=== PATIENT | female | born 1990 ===

== ENCOUNTER 2017-04-29 19:42 | Emergency (ER) | payer SELFPAY ==
[2017-04-29 19:53] VITALS: TEMP 98.7; BMI 19.8
[2017-04-29] MEDS ORDERED: Sodium Chloride 0.9% 1,000 ML IV STA (20:08)
--- NOTE | 2017-04-29 20:18 | ED PDOC ---
Arrival/HPI - General Chief Complaint: Abdominal Pain Time Seen by Provider: 04/29/17 19:43 - History of Present Illness Narrative History of Present Illness (Text): 04/29/17 20:18 26yo female present with complaint of constant crampy abdominal pain x 2days. Notes that pain started with her period. She states she has been experiencing this pain with her period x 5months now. Notes that she saw her "[facility] once and was told she had UTI. She was taking OTC ibuprofen without relieve. Also report diarrhea x 3 today. Denies nausea, vomiting, hematuria, dysuria, hematochezia, hematemesis, fever, chills, any other complaint. Past Medical History - Provider Review Nursing Documentation Reviewed: Yes - Cardiac Hx Cardiac Disorders: No - Pulmonary Hx Respiratory Disorders: No - Neurological Hx Neurological Disorder: No - HEENT Hx HEENT Disorder: No - Renal Hx Renal Disorder: No - Endocrine/Metabolic Hx Endocrine Disorders: No - Hematological/Oncological Hx Blood Disorders: No - Integumentary Hx Dermatological Disorder: No - Musculoskeletal/Rheumatological Hx Musculoskeletal Disorders: No - Gastrointestinal Hx Gastrointestinal Disorders: No - Genitourinary/Gynecological Hx Genitourinary Disorders: No - Psychiatric Hx Psychophysiologic Disorder: No Hx Substance Use: No - Anesthesia Hx Anesthesia: No Family/Social History - Physician Review Nursing Documentation Reviewed: Yes Family/Social History: Unknown Family HX Smoking Status: Never Smoked Hx Alcohol Use: Yes Frequency of alcohol use: Socially Hx Substance Use: No Allergies/Home Meds Allergies/Adverse Reactions: Allergies No Known Allergies Allergy (Verified 04/29/17 19:52) Review of Systems - Physician Review All systems were reviewed & negative as marked: Yes - Review of Systems Constitutional: Normal Eyes: Normal ENT: Normal Respiratory: Normal Cardiovascular: Normal Gastrointestinal: Abdominal Pain, Diarrhea. absent: Constipation, Nausea, Vomiting, Hematochezia, Hematemesis Genitourinary Female: Normal Musculoskeletal: Normal Skin: Normal Neurological: Normal Endocrine: Normal Hemo/Lymphatic: Normal Psychiatric: Normal Physical Exam Vital Signs Reviewed: Yes Vital Signs Temp Pulse Resp BP Pulse Ox 04/29/17 22:47 95 H 16 115/87 100 04/29/17 19:53 98.7 F 108 H 20 93/67 L 98 04/29/17 19:52 98.7 F 108 H 20 93/67 L 98 Temperature: Afebrile Blood Pressure: Normal Pulse: Regular Respiratory Rate: Normal Appearance: Positive for: Well-Appearing, Non-Toxic, Comfortable Pain Distress: None Mental Status: Positive for: Alert and Oriented X 3 - Systems Exam Head: Present: Atraumatic, Normocephalic Pupils: Present: PERRL Extroacular Muscles: Present: EOMI Conjunctiva: Present: Normal Mouth: Present: Moist Mucous Membranes Neck: Present: Normal Range of Motion Respiratory/Chest: Present: Clear to Auscultation, Good Air Exchange. No: Respiratory Distress, Accessory Muscle Use Cardiovascular: Present: Regular Rate and Rhythm, Normal S1, S2. No: Murmurs Abdomen: Present: Tenderness (Diffuse), Normal Bowel Sounds, Guarding (Voluntary ), Other (Soft). No: Distention, Peritoneal Signs, Rebound, McBurney's Point Tender, Rovsing's Sign Present Back: No: CVA Tenderness, Midline Tenderness Upper Extremity: Present: Normal Inspection. No: Cyanosis, Edema Lower Extremity: Present: Normal Inspection. No: Edema Neurological: Present: GCS=15, CN II-XII Intact, Speech Normal Skin: Present: Warm, Dry, Normal Color. No: Rashes Psychiatric: Present: Alert, Oriented x 3, Normal Insight, Normal Concentration Medical Decision Making ED Course and Treatment: 04/30/17 00:13 PT presented for stated history. Her pain improved in ED with medication. Her lab was nonspecific. Transvaginal US 04/30/17 00:17 FINDINGS: Uterus/cervix: Unremarkable in echogenicity and size measuring 7.1 x 5.6 x 4.7 cm. Normal endometrial stripe thickness, measuring 4 mm. No myometrial mass. Right ovary: Unremarkable in echogenicity and size measuring 2.7 x 1.9 x 1.8 cm. A dominant follicle is detected measuring 7.5 mm. No mass. Normal blood flow. Left ovary: Unremarkable in size measuring 3.1 x 1.6 x 2.4 cm. a bilobed anechoic focus is identified with a combined diameter of 12 mm. This focus represents either 2 separate simple cysts with intervening ovarian tissue, versus a septated cyst. The septation measures 2 mm in thickness but does demonstrate vascularity. Otherwise normal blood flow is detected within the left ovary. Free fluid: Complex free fluid is identified superior to the uterus and within the left adnexa. IMPRESSION: Complex cyst within the left ovary for which followup is recommended. Complex free fluid within the left hemipelvis, as detailed above. 04/30/17 00:18 FINDINGS: Liver: The liver is increased in echogenicity suggesting fatty infiltration. The liver is unremarkable in size measuring 15 cm in longitudinal dimension. No intrahepatic bile duct dilation. Trace free fluid within the hepatorenal recess. Gallbladder: The gallbladder is only minimally distended, without shadowing stones. No gallbladder wall thickening or pericholecystic fluid. Common bile duct: No stones. No dilation, measuring 3 mm. Pancreas: Visualization of the pancreas is limited by overlying bowel gas. Right kidney: Unremarkable in echogenicity and size measuring 9.6 x 4.6 x 5.5 cm. No hydronephrosis. Left Kidney: Unremarkable in echogenicity and size measuring 9.4 x 5.9 x 5.1 cm. No hydronephrosis. Spleen: Unremarkable in echogenicity and size measuring 8.8 cm in longitudinal dimension. Aorta: Unremarkable. Inferior vena cava: patent. IMPRESSION: Fatty infiltration of the liver. Trace free fluid within the hepatorenal recess, a finding of uncertain clinical significance. Limited evaluation of the pancreas, secondary to overlying bowel gas. Otherwise, unremarkable sonographic evaluation of the abdomen, as detailed above. Result was DW the pt. 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 Advised TRT ED for any new or worsening symptoms. - Lab Interpretations Lab Results: 04/29/17 20:25 04/29/17 20:25 Lab Results 04/29/17 20:25: Sodium 137, Potassium 3.8, Chloride 101, Carbon Dioxide 27, Anion Gap 13, BUN 12, Creatinine 0.8, Est GFR ( Amer) > 60, Est GFR (Non- Af Amer) > 60, Random Glucose 104, Calcium 9.6, Total Bilirubin 1.7 H, AST 26, ALT 46, Alkaline Phosphatase 62, Total Protein 8.4 H, Albumin 4.4, Globulin 4.0 , Albumin/Globulin Ratio 1.1, Lipase 37 04/29/17 20:25: Urine Color Light red, Urine Appearance Cloudy, Urine pH 7.0, Ur Specific Michael 1.015, Urine Protein 30 H, Urine Glucose (UA) Negative, Urine Ketones Negative, Urine Blood Large H, Urine Nitrate Negative, Urine Bilirubin Negative, Urine Urobilinogen 0.2, Ur Leukocyte Esterase Negative, Urine RBC Tntc, Urine WBC 5 - 10, Ur Epithelial Cells 4 - 5 04/29/17 20:25: PT 13.1 H, INR 1.20 H, APTT 28.9 04/29/17 20:25: WBC 8.7, RBC 4.60, Hgb 13.3, Hct 40.5, MCV 88.0, MCH 28.9, MCHC 32.8, RDW 13.6, Plt Count 215, MPV 10.1, Gran % 75.8 H, Lymph % (Auto) 14.5 L, [place] % (Auto) 9.5 H, Eos % (Auto) 0.1 L, Baso % (Auto) 0.1, Gran # 6.62 H, Lymph # 1.3, [place] # 0.8 H, Eos # 0.0, Baso # 0.01 - RAD Interpretation Radiology Orders: 04/29/17 20:08 ABDOMEN COMPLETE [US] Stat 04/29/17 20:10 TRANSVAGINAL [US] Stat - Medication Orders Current Medication Orders: Discontinued Medications Famotidine (Pepcid) 20 mg IVP STAT STA Stop: 04/29/17 20:09 Last Admin: 04/29/17 20:47 Dose: 20 mg IVP Administration Document 04/29/17 20:47 SF (Rec: 04/29/17 20:47 SF [id number] Charges for Administration # of IVP Administrations 1 Sodium Chloride (Sodium Chloride 0.9%) 1,000 mls @ 1,000 mls/hr IV .Q1H STA Stop: 04/29/17 21:07 Last Admin: 04/29/17 20:46 Dose: 1,000 mls/hr eMAR Start Stop Document 04/29/17 20:46 SF (Rec: 04/29/17 20:46 SF [email or web address]) Intravenous Solution Start Date 04/29/17 Start Time 20:46 End Date 04/29/17 End time 21:46 Total Infusion Time 60 Ketorolac Tromethamine (Toradol) 30 mg IVP STAT STA Stop: 04/29/17 20:09 Last Admin: 04/29/17 20:46 Dose: 30 mg MAR Pain Assessment Document 04/29/17 20:46 SF (Rec: 04/29/17 20:46 SF [place] [id number]) Pain Reassessment Is this a pain reassessment? Yes Sleep Is patient sleeping during reassessment? No Presence of Pain Presence of Pain Yes Pain Scale Used Pain Scale Used Numeric IVP Administration Document 04/29/17 20:46 SF (Rec: 04/29/17 20:46 SF [place] [id number]) Charges for Administration # of IVP Administrations 1 Re-Assess: MAR Pain Assessment Document 04/29/17 21:46 HI (Rec: 04/29/17 22:46 HI [id number] Pain Reassessment Is this a pain reassessment? No Sleep Is patient sleeping during reassessment? No Presence of Pain Presence of Pain Yes Location Pain Location Body Site Abdomen Ondansetron HCl (Zofran Inj) 4 mg IVP STAT STA Stop: 04/29/17 20:09 Last Admin: 04/29/17 20:46 Dose: 4 mg IVP Administration Document 04/29/17 20:46 SF (Rec: 04/29/17 20:46 SF [place] [id number]) Charges for Administration # of IVP Administrations 1 Tramadol HCl (Ultram) 50 mg PO STAT STA Stop: 04/29/17 22:31 Last Admin: 04/29/17 22:46 Dose: 50 mg [facility] Pain Assessment Document 04/29/17 22:46 HI (Rec: 04/29/17 22:46 HI [id number] Pain Reassessment Is this a pain reassessment? No Sleep Is patient sleeping during reassessment? No Presence of Pain Presence of Pain Yes Location Pain Location Body Site Abdomen Disposition/Present on Arrival - Present on Arrival Any Indicators Present on Arrival: No History of DVT/PE: No History of Uncontrolled Diabetes: No Urinary Catheter: No History of Decub. Ulcer: No History Surgical Site Infection Following: None - Disposition Have Diagnosis and Disposition been Completed?: Yes Diagnosis: Abdominal pain, Dysmenorrhea Disposition: HOME/ ROUTINE Disposition Time: 22:15 Patient Plan: Discharge Condition: STABLE Discharge Instructions (ExitCare): Dysmenorrhea (ED) Additional Instructions: Follow up with your NUCLEAR MEDICINE TECHNICIAN Return to ED for any new symptoms Prescriptions: Naproxen [Naprosyn] 500 mg PO BID #20 tab Referrals: PCP,NO [Primary Care Provider] - Follow up with primary Forms: [employer] ([place])
[2017-04-29 20:48] LABS: BASO # 0.01 K/mm3 (0.0-2.0); BASO % 0.1 % (0.0-3.0); EOS % 0.1 % (1.5-5.0); GRAN # 6.62 (1.4-6.5); GRAN % 75.8 % (50.0-68.0); HEMATOCRIT 40.5 % (36.0-48.0); LYMPH # 1.3 (1.2-3.4); LYMPH % 14.5 % (22.0-35.0); MEAN CORPUSCULAR HEMOGLOBIN 28.9 pg (25.0-35.0); MEAN CORPUSCULAR HGB CONC 32.8 g/dl (31.0-37.0); MEAN PLATELET VOLUME 10.1 fl (7.0-11.0); MONO # 0.8 (0.1-0.6); MONO % 9.5 % (1.0-6.0); RED CELL DISTRIBUTION WIDTH 13.6 % (11.5-14.5); WHITE BLOOD COUNT 8.7 10^3/ul (4.5-11.0)
[2017-04-29 20:57] LABS: ALKALINE PHOSPHATASE 62 U/L (38-126); ALT/SGPT 46 U/L (7-56); AST/SGOT 26 U/L (14-36); BILIRUBIN,TOTAL 1.7 mg/dL (0.2-1.3); BLOOD UREA NITROGEN 12 mg/dL (7-21); CALCIUM 9.6 mg/dL (8.4-10.5); CARBON DIOXIDE 27 mmol/L (21-33); CHLORIDE 101 mmol/L (98-107); GFR AFRICAN-AMERICAN > 60; GLUCOSE,RANDOM 104 mg/dL (70-110); LIPASE 37 U/L (23-300); POTASSIUM 3.8 mmol/L (3.6-5.0); SODIUM 137 mmol/L (132-148); TOTAL PROTEIN 8.4 g/dL (5.8-8.3)
[2017-04-29 21:02] LABS: ALB/GLOB RATIO 1.1 (1.1-1.8); URINE BILIRUBIN NEGATIVE (NEGATIVE); URINE BLOOD LARGE (NEGATIVE); URINE GLUCOSE (UA) NEGATIVE (NEGATIVE); URINE KETONE NEGATIVE (NEGATIVE); URINE LEUKOCYTE ESTERASE NEGATIVE Leu/uL (NEGATIVE); URINE PROTEIN 30 mg/dL (<30 mg/dL); URINE UROBILINOGEN 0.2 E.U./dL (<1 E.U./dL)
[2017-04-29 21:16] LABS: INR 1.2 (0.93-1.08); PARTIAL THROMBOPLASTIN TIME 28.9 Seconds (25.1-36.5); URINE APPEARANCE CLOUDY (CLEAR); URINE COLOR LIGHT RED (YELLOW)
[2017-04-29 21:39] LABS: URINE RBC TNTC /hpf (0-2)
--- NOTE | 2017-04-29 22:02 | US ---
EXAM: US Abdomen Complete CLINICAL HISTORY: 26 years old, female; Pain; Abdominal pain; Generalized TECHNIQUE: Real-time ultrasound of the abdomen (complete) with image documentation. COMPARISON: No relevant prior studies available. FINDINGS: Liver: The liver is increased in echogenicity suggesting fatty infiltration. The liver is unremarkable in size measuring 15 cm in longitudinal dimension. No intrahepatic bile duct dilation. Trace free fluid within the hepatorenal recess. Gallbladder: The gallbladder is only minimally distended, without shadowing stones. No gallbladder wall thickening or pericholecystic fluid. Common bile duct: No stones. No dilation, measuring 3 mm. Pancreas: Visualization of the pancreas is limited by overlying bowel gas. Right kidney: Unremarkable in echogenicity and size measuring 9.6 x 4.6 x 5.5 cm. No hydronephrosis. Left Kidney: Unremarkable in echogenicity and size measuring 9.4 x 5.9 x 5.1 cm. No hydronephrosis. Spleen: Unremarkable in echogenicity and size measuring 8.8 cm in longitudinal dimension. Aorta: Unremarkable. Inferior vena cava: patent. IMPRESSION: Fatty infiltration of the liver. Trace free fluid within the hepatorenal recess, a finding of uncertain clinical significance. Limited evaluation of the pancreas, secondary to overlying bowel gas. Otherwise, unremarkable sonographic evaluation of the abdomen, as detailed above.
--- NOTE | 2017-04-29 22:08 | US ---
EXAM: US Pelvis, Transvaginal CLINICAL HISTORY: 26 years old, female; Pain; Pelvic pain TECHNIQUE: Real-time transvaginal pelvic ultrasound (complete) with image documentation. Transvaginal imaging was used for better evaluation of the endometrium and adnexa. COMPARISON: No relevant prior studies available. FINDINGS: Uterus/cervix: Unremarkable in echogenicity and size measuring 7.1 x 5.6 x 4.7 cm. Normal endometrial stripe thickness, measuring 4 mm. No myometrial mass. Right ovary: Unremarkable in echogenicity and size measuring 2.7 x 1.9 x 1.8 cm. A dominant follicle is detected measuring 7.5 mm. No mass. Normal blood flow. Left ovary: Unremarkable in size measuring 3.1 x 1.6 x 2.4 cm. a bilobed anechoic focus is identified with a combined diameter of 12 mm. This focus represents either 2 separate simple cysts with intervening ovarian tissue, versus a septated cyst. The septation measures 2 mm in thickness but does demonstrate vascularity. Otherwise normal blood flow is detected within the left ovary. Free fluid: Complex free fluid is identified superior to the uterus and within the left adnexa. IMPRESSION: Complex cyst within the left ovary for which followup is recommended. Complex free fluid within the left hemipelvis, as detailed above.
[2017-04-29 22:48] VITALS: BP 115/87; PULSE 95; RESP 16; O2SAT 100
== END 2017-04-29 22:48 | disposition home or self-care (01) ==
LOC: ED 19:42
DX: N94.6 Dysmenorrhea, unspecified (principal); R10.9 Unspecified abdominal pain
CPT/HCPCS: 76700; 76830; 80053; 81001; 83690; 85025; 85610; 85730; 87086; 96361; 96374; 96375; 99284; J1885; J2405; J7040